=== PATIENT | female | born 1985 | race Two or more races ===

== ENCOUNTER 2019-05-20 14:59 | Emergency (ER) | payer BC, OTHER ==
[~2019-05-20] VITALS: Ht 160 cm; Wt 72.1 kg
[2019-05-20 15:03] VITALS: BP 96/63
[2019-05-20] MEDS ORDERED: TETANUS-DIPTH-ACEL PERTUSSIS 0.5ML SYRG IM ONE (15:45)
[2019-05-20] MEDS ORDERED: IBUPROFEN 800 MG TAB PO ONE (16:45)
== END 2019-05-20 17:30 | disposition home or self-care (01) ==
LOC: ER 15:16
DX: S61.451A Open bite of right hand, initial encounter (principal); Z88.6 Allergy status to analgesic agent; W54.0XXA Bitten by dog, initial encounter; Y93.89 Activity, other specified; Y99.8 Other external cause status; Y92.89 Other specified places as the place of occurrence of the external cause
CPT/HCPCS: 73130; 90471; 90715